=== PATIENT | female | born 1995 | race Caucasian/White ===

== ENCOUNTER 2018-05-17 10:16 | Emergency (ER) | payer BC ==
[~2018-05-17] VITALS: Ht 175.3 cm; Wt 107.5 kg
[2018-05-17 12:08] VITALS: BP 132/63
[2018-05-17 12:26] LABS: U PREG PATIENT NEGATIVE (NEG)
[2018-05-17 12:31] LABS: BACTERIA,URINE MANY /HPF (0-FEW); BILIRUBIN,URINE NEG (NEG); CLARITY,URINE CLOUDY; COLOR,URINE YELLOW; GLUCOSE,URINE NEG (NEG); NITRITE,URINE NEG (NEG); UROBILINOGEN,URINE 1 mg/dL (0.2 mg/dL)
[2018-05-17 12:32] LABS: SQUAMOUS EPITHELIAL CELL,UR MOD /LPF
--- NOTE | 2018-05-17 12:38 | PHYS DOC ---
Past History Past Medical History: No Pertinent History Past Surgical History: No Surgical History Alcohol Use: None Drug Use: None Adult General Chief Complaint Chief Complaint: SYNCOPE HPI HPI Patient is a 22 year old F who presents with syncope. Yessy states that she was stretching just prior to examination when she felt pain in her chest and back. She then became lightheaded and passed out. After waking up she denied other symptoms. She has no nausea or vomiting. She has no headache. She has a small abrasion where she hit her head on the floor. She's never had this happen before. Review of Systems Review of Systems Constitutional: Denies fever or chills [] Eyes: Denies change in visual acuity, redness, or eye pain [] HENT: Denies nasal congestion or sore throat [] Respiratory: Denies cough or shortness of breath [] Cardiovascular: No additional information not addressed in HPI [] GI: Denies abdominal pain, nausea, vomiting, bloody stools or diarrhea [] : Denies dysuria or hematuria [] Musculoskeletal: Denies back pain or joint pain [] Integument: Denies rash or skin lesions [] Neurologic: Denies headache, focal weakness or sensory changes [] Endocrine: Denies polyuria or polydipsia [] All other systems were reviewed and found to be within normal limits, except as documented in this note. Family History Family History Her mother has history of strokes with her first stroke in her 20s Current Medications Current Medications No current medications Allergies Allergies Allergies Coded Allergies Type Severity Reaction Last Updated Verified No Known Drug Allergies 05/17/18 No Physical Exam Physical Exam Constitutional: Well developed, well nourished, no acute distress, non-toxic appearance. [] HENT: Normocephalic, abrasion of the right forehead Eyes: EOMI, conjunctiva normal, no discharge. [] Neck: Normal range of motion, no tenderness, supple, no stridor. [] Cardiovascular:Heart rate regular rhythm, no murmur [] Lungs & Thorax: Bilateral breath sounds clear to auscultation [] Abdomen: Bowel sounds normal, soft, no tenderness, no masses, no pulsatile masses. [] Skin: Warm, dry, no erythema, no rash. [] Extremities: No tenderness, no cyanosis, no clubbing, ROM intact, no edema. [] Neurologic: Alert and oriented X 3, normal motor function, normal sensory function, no focal deficits noted. [] Psychologic: Affect normal, judgement normal, mood normal. [] Current Patient Data Vital Signs Vital Signs Date Time Temp Pulse Resp B/P (MAP) Pulse Ox O2 Delivery O2 Flow Rate FiO2 05/17/18 12:08 87 18 132/63 (86) 96 Room Air 05/17/18 11:13 97.8 Lab Results Laboratory Tests Test 05/17/18 11:57 Urine Collection Type Unknown Urine Color Yellow Urine Clarity Cloudy Urine pH 7.5 Urine Specific [place] 1.015 Urine Protein Neg (NEG-TRACE) Urine Glucose (UA) Neg mg/dL (NEG) Urine Ketones (Stick) Neg mg/dL (NEG) Urine Blood Neg (NEG) Urine Nitrite Neg (NEG) Urine Bilirubin Neg (NEG) Urine Urobilinogen Dipstick 1 mg/dL (0.2 mg/dL) Urine Leukocyte Esterase Mod (NEG) Urine RBC 1-2 /HPF (0-2) Urine WBC 5-10 /HPF (0-4) Urine Squamous Epithelial Cells Mod /LPF Urine Bacteria Many /HPF (0-FEW) Urine Mucus Slight /LPF Urine Test Negative (NEG) EKG EKG Normal sinus rhythm Radiology/Procedures Radiology/Procedures [] Course & Med Decision Making Course & Med Decision Making Pertinent Labs and Imaging studies reviewed. (See chart for details) [] Dragon Disclaimer Dragon Disclaimer This electronic medical record was generated, in whole or in part, using a voice recognition dictation system. Departure Departure: Impression: Primary Impression: Vasovagal syncope Disposition: 01 HOME, SELF-CARE Referrals: PCP,GLENN (PCP) Patient Instructions: Syncope Additional Instructions: Yessy seen in the emergency department for syncope. No emergency medical condition is found on history and physical exam. She had a normal EKG. She was advised to follow up with primary care doctor as needed further management. She was also advised to return to the emergency room as soon as possible if she develops new or worsening symptoms. JO FERGUSON MD May 17, 2018 12:38
--- NOTE | 2018-05-17 15:44 | EKG ---
[address] [address] Test Date: 2018-05-17 Test Time: 10:52:54 Pat Name: SHARATH FIGUEROA Department: Room: Gender: F [employer] Machine Operator: : [id number] Requested By: JO FERGUSON Order Number: [id number] Reading MD: Measurements Intervals [place] Rate: 91 P: 34 KS: 170 QRS: 42 QRSD: 86 T: 41 QT: 348 QTc: 430 Interpretive Statements SINUS RHYTHM QRS(T) CONTOUR ABNORMALITY CONSIDER ANTEROLATERAL MYOCARDIAL DAMAGE CONSIDER INFERIOR MYOCARDIAL DAMAGE POSSIBLY ABNORMAL ECG RI6.01 Unconfirmed report No previous ECG available for comparison
== END 2018-05-17 12:52 | disposition home or self-care (01) ==
LOC: ER 10:16
DX: R55 Syncope and collapse (principal); S00.81XA Abrasion of other part of head, initial encounter; R07.89 Other chest pain; W22.8XXA Striking against or struck by other objects, initial encounter; Y93.89 Activity, other specified; Y92.89 Other specified places as the place of occurrence of the external cause; Y99.8 Other external cause status
CPT/HCPCS: 81001; 81025; 87086; 93005; 99284